=== PATIENT | male | born 2000 | race Caucasian/White ===

== ENCOUNTER 2020-12-12 22:06 | Emergency (ER) | payer SELFPAY ==
[2020-12-12] VITALS (7 sets, daily range): BP systolic 108–114; BP diastolic 66–68; PULSE 79–87; RESP 20; TEMP 36.4; O2SAT 97–100
--- NOTE | 2020-12-12 22:30 | DI.RAD_ITS ---
Exam(s) XR PORTABLE CHEST AP EXAM: XR PORTABLE CHEST AP CLINICAL HISTORY: PUI/Cough. TECHNIQUE: 2D digital imaging was performed. COMPARISON: No exams were available for comparison FINDINGS: Heart size is normal. The mediastinum is not widened. There is bilateral hyperinflation. No pneumo thorax. Lungs are clear. No infiltrates nor obvious pleural effusions. IMPRESSION: No acute pulmonary findings on this single AP portable view of the chest. Bilateral pulmonary hyperinflation is noted. DATA REPOSITORY: RADIATION DOSE DELIVERED: All CT scans at this facility use at least one of these dose optimization techniques: automated exposure control; mA and/or kV adjustment per patient size (includes targeted e xams where dose is matched to clinical indication); or iterative reconstruction.
--- NOTE | 2020-12-12 22:35 | ED.GENADUL_ITS ---
Discharge Plan Disposition Patient Disposition: HOME Condition: Stable Discharge Details Clinical Impression: Cough, Vomiting Primary Care Provider: Unknown,Unknown ED Provider: Tanya Owens Home Meds and New Rx's Prescriptions: No Action No Known Home Meds RF: 0 Discharge Instructions Instructions: Acute Nausea and Vomiting (ED), Acute Cough (ED) Additional Instructions: Use Zofran three times daily as needed for nausea and vomiting. Use tessalon Perles for cough. Follow up with primary care provider in 3-5 days. Return to ED sooner if any worsening or concerns. Increase oral fluids. Please take Tylenol or Ibuprofen with food every 4-6 hours as needed for pain and swelling. Slow frequent meals. Keep yourself hydrated. Drink Gatorade or similar while having vomiting. Stand Alone Forms: PENDING COVID-19 TESTING Medical Decision Making 20-year-old male presents the ER chief complaint of cough which began today. Patient reports associated with vomiting which he reports as vomiting up phlegm. He states that he had approximately 7 episodes of emesis. Denies fever chills no diarrhea no dysuria or problems urinating. Denies any known sick contacts. He has had the first Covid vaccination which he reports was approximately 2 months ago. He has taken some [id number]-dkp-khcinkb cough medicine prior to arrival. He denies any sore throat pain or any other associated symptoms. He does endorse marijuana no other drugs or alcohol. He is a non- smoker. At this time chest x-ray ordered, Covid swab, Zofran ODT and Tessalon Perles. Patient is well appearing no respiratory distress. No abdominal pain elicited with my exam. Vital signs are stable. Imaging protocol: XR of the chest. Views: 1 view. COMPARISON: No relevant prior studies available. FINDINGS: Lungs: Lungs are symmetrically hyperinflated. No focal consolidation or pulmonary edema. Pleural spaces: No pleural effusion. No pneumothorax. Heart/Mediastinum: Cardiomediastinal contours within normal limits. Bones/joints: No acute osseous finding. IMPRESSION: 1. No focal consolidation. 2. Hyperinflation. Thank you for allowing us to participate in the care of your patient. Dictated and Authenticated by: Doug Wright MD Patient instructed to quarantine until negative Covid result. Increase oral fluids patient placed on care management list for PCP establishment. Patient reports feeling better. This text was generated using Dragon dictation system, please disregard any oddities of phrase or misspellings. HPI General Mode of arrival: ambulatory . Date/Time Provider Initiated Documentation: 12/12/20 22:09 . Limitations to Documentation: no limitations . Information obtained by: patient . HPI Narrative: 20-year-old male presents the ER chief complaint of cough which began today. Patient reports associated with vomiting which he reports as vomiting up phlegm. He states that he had approximately 7 episodes of emesis. Denies fever chills no diarrhea no dysuria or problems urinating. Denies any known sick contacts. He has had the first Covid vaccination which he reports was approximately 2 months ago. He has taken some kctg-tiu-rrmzfiy cough medicine prior to arrival. He denies any sore throat pain or any other associated symptoms. He does endorse marijuana no other drugs or alcohol. He is a non-smoker. Related Data Home Medications Medication Instructions Recorded Confirmed Unknown [No Known Home Meds] 12/12/20 12/12/20 Allergies Allergy/AdvReac Type Severity Reaction Status Date / Time No Known Allergies Allergy Unverified 12/12/20 22:28 General Stated Complaint: SOB GISSELL: 3 Review of Systems All systems reviewed & are unremarkable except as noted in HPI and below Constitutional Constitutional: Denies chills and Denies fever(s) ENT Ears, Nose, Mouth, and Throat: Denies sore throat Cardiovascular Cardiovascular: Denies chest pain and Denies dyspnea Respiratory Respiratory: Reports cough, Denies hemoptysis and Denies dyspnea Gastrointestinal Gastrointestinal: Denies constipation, Denies diarrhea, Denies loose stools, Reports vomiting and Denies hematemesis Genitourinary Genitourinary: Denies dysuria [facility] Social History Smoking/Tobacco Use Status: Never Smoking risk assessment performed?: Yes Alcohol Intake: never Drug use: Daily Substance use type: marijuana Do you feel safe at home: Yes Do you feel safe in your relationship?: Yes Exam Narrative Exam Narrative: Constitutional: Alert and oriented x3. Appears stated age. Thin body habitus. Head: Normocephalic, no trauma. Eyes: Pupils PERRLA, Red reflex noted, EOM's intact. Eyelids symmetrical without lesions, discharge, or swelling. ENT: Bilateral TM's WNL, External ear normal to inspection, no mastoid TTP, swelling, or erythema, Nasal turbinates WNL, no nasal discharge. Normal dentition, Posterior pharynx WNL, no exudate. Chest: RRR, Normal S1, S2, distal pulses intact. Resp: Lungs clear to auscultation bilaterally, no wheezes, rales, or rhonchi. Abdomen: Soft, nondistended nontender to palpation all 4 quadrants. Musculoskeletal: Normal gait, 5/5 strength to all four extremities. Skin: No suspicious rashes or lesions. Capillary refill less than 2 sec. Neurologic: Cranial nerves II-XII intact. Alert and oriented x 3. DTR's intact. Hematologic/Lymphatic: No ecchymosis, no lymphadenopathy. Course Vital Signs Vital signs: Vital Signs Temperature 36.4 C L 12/12/20 22:25 Pulse 85 12/12/20 22:25 Respiratory Rate 20 12/12/20 22:25 Blood Pressure 112/68 12/12/20 22:25 Pulse Oximetry 99 12/12/20 22:25 Temperature 36.4 C L 12/12/20 22:25 Temperature Source Temporal Artery Scan 12/12/20 22:25 Pulse 85 12/12/20 22:25 Respiratory Rate 20 12/12/20 22:25 Respiratory Effort 12/12/20 22:30 Blood Pressure 112/68 12/12/20 22:25 Blood Pressure Position Sitting 12/12/20 22:25 Pulse Oximetry 99 12/12/20 22:25 Oxygen Delivery Method Room Air 12/12/20 22:25 Oxygen Flow Rate 0 12/12/20 22:25 Pain Level 5 12/12/20 22:25
[2020-12-12] MEDS: Benzonatate 100 MG CAP PO (22:46)
[2020-12-12] MEDS: Ondansetron O.D.T. 4 MG TABEF PO (22:46)
--- NOTE | 2020-12-12 23:51 | DI.VRAD_ITS ---
PROCEDURE INFORMATION: Exam: XR Chest Exam date and time: 12/12/2020 10:40 PM Age: 20 years old Clinical indication: Pain; Patient HX: Cough vomiting TECHNIQUE: Imaging protocol: XR of the chest. Views: 1 view. COMPARISON: No relevant prior studies available. FINDINGS: Lungs: Lungs are symmetrically hyperinflated. No focal consolidation or pulmonary edema. Pleural spaces: No pleural effusion. No pneumothorax. Heart/Mediastinum: Cardiomediastinal contours within normal limits. Bones/joints: No acute osseous finding. IMPRESSION: 1. No focal consolidation. 2. Hyperinflation. Dictated and Authenticated by: Doug Wright MD. Ordering:NIRAJ Martínez MD
--- NOTE | 2020-12-13 00:04 | NUR.NOTE ---
Referral to Care Management to establish PCP for a cough in a week or so.Nursing Note:
[2020-12-13] MEDS: Ondansetron O.D.T. 4 MG TABEF, 3 TABS/BTL PO (00:05)
[2020-12-13] MEDS: Benzonatate 100 MG CAP 200 MG PO (00:06)
[2020-12-13 00:12] VITALS: BP 119/68; PULSE 90; RESP 18; TEMP 37.2; O2SAT 99
--- NOTE | 2020-12-13 10:07 | CMPROGNOTE_ITS ---
- If Service Date Differs Date of service: 12/13/20 Time of Service: 10:07 Care Management Progress Note Enrico is seen in the ED for a cough and vomiting. At the request of ED provider, CRESENCIO coordinates a referral to SHAUNA Madsen, of [facility], on-call provider, to assist Enrico in obtaining a follow up appointment and in establishing care with a PCP. Enrico is also referred to the [employer] at [facility] for assistance exploring health insurance options.
[2020-12-14 13:06] LABS: COVID-19 RT-PCR UVMMC Result Negative (Negative)
== END 2020-12-13 00:10 | disposition home or self-care (01) ==
PROVIDERS: Emergency Provider Registered Nurse Emergency
DX: R05 Cough (principal); R11.2 Nausea with vomiting, unspecified; Z20.822 Contact with and (suspected) exposure to COVID-19; Z03.818 Encounter for observation for suspected exposure to other biological agents ruled out
CPT/HCPCS: 99283; U0003; 71045